=== PATIENT | female | born 1965 | race Caucasian/White ===

== ENCOUNTER → 2016-11-27 | Outpatient (CLI) | payer OTHER ==
--- NOTE | 2016-11-29 10:15 | MM ---
Reason for exam: screening (asymptomatic). Last mammogram was performed 2 years and 1 month ago. History: Reductions of both breasts, June 2004. Took hormonal contraceptives for 18 years. Physical Findings: A clinical breast exam by your physician is recommended on an annual basis and results should be correlated with mammographic findings. MG Screening Mammo w CAD Bilateral CC and MLO view(s) were taken. Prior study comparison: November 03, 2014, bilateral MG screening mammo w CAD. October 28, 2013, CAD bilateral diagnostic mammogram. October 16, 2012, CAD bilateral diagnostic mammogram. No significant changes when compared with prior studies. ASSESSMENT: Negative, BI-RAD 1 RECOMMENDATION: Routine screening mammogram of both breasts in 1 year.
== END | disposition home or self-care (01) ==
LOC: RADMAMWWP 13:52
PROVIDERS: ATTEND Obstetrics & Gynecology
DX: Z12.31 Encounter for screening mammogram for malignant neoplasm of breast (principal)

== ENCOUNTER → 2018-10-08 | Outpatient (CLI) | payer OTHER ==
--- NOTE | 2018-10-10 11:35 | MM ---
Reason for exam: screening (asymptomatic). Last mammogram was performed 1 year and 10 months ago. History: Reductions of both breasts, June 2004. Took hormonal contraceptives for 18 years. Physical Findings: A clinical breast exam by your physician is recommended on an annual basis and results should be correlated with mammographic findings. MG Screening Mammo w CAD Bilateral CC and MLO view(s) were taken. Prior study comparison: November 27, 2016, bilateral MG screening mammo w CAD. November 03, 2014, bilateral MG screening mammo w CAD. The breast tissue is heterogeneously dense. This may lower the sensitivity of mammography. No significant changes when compared with prior studies. ASSESSMENT: Benign, BI-RAD 2 RECOMMENDATION: Routine screening mammogram of both breasts in 1 year.
== END | disposition home or self-care (01) ==
LOC: RADMAMWWP 12:27
PROVIDERS: ATTEND Obstetrics & Gynecology
DX: Z12.31 Encounter for screening mammogram for malignant neoplasm of breast (principal)
CPT/HCPCS: 77067

== ENCOUNTER 2019-08-12 10:24 | Day surgery (SDC) | payer OTHER ==
[2019-08-12] MEDS ORDERED: LACTATED RINGERS 1,000 ML IV SCH (10:34)
[2019-08-12 10:51] VITALS: TEMP 97.6
[2019-08-12] MEDS ORDERED: PROPOFOL 10 MG/ML 20 ML VIAL IV ONE (10:52)
--- NOTE | 2019-08-12 11:42 | P.PCN ---
Date of Procedure: 08/12/19 Description of Procedure: BRIEF HISTORY: Patient is a 54-year-old female presents for outpatient colonoscopy for screening for malignant neoplasm of the colon. Denies any change in bowel habits, blood per rectum or abdominal pain. No prior colonoscopies reported. PROCEDURE PERFORMED: Colonoscopy. PREOPERATIVE DIAGNOSIS: Screening for malignant neoplasm of the colon, no prior colonoscopies reported. ESTIMATED BLOOD LOSS: Minimal. IV sedation per Anesthesia. PROCEDURE: After informed consent was obtained, the patient, was brought into the endoscopy unit. IV sedation was administered by Anesthesia under continuous monitoring. Digital rectal examination was normal. Initially the Olympus CF-190 flexible video colonoscope was then inserted in the rectum, gradually advanced into the cecum without any difficulty. Careful examination was performed as the scope was gradually being withdrawn. Ileocecal valve and the appendiceal orifice were visualized and appeared normal. Prep was poor with liquid stool throughout the colon with some solid components prohibiting complete lavage and suction and complete visualization of the mucosa. Mucosa of the cecum, ascending colon, transverse colon, descending colon, sigmoid colon, and rectum which was visualized appeared normal. Retroflexion was performed in the rectum and no lesions were seen. The patient tolerated the procedure well. IMPRESSION: Poor prep. Normal-appearing colon from rectum to cecum, however complete visualization of the mucosa was limited by poor prep. RECOMMENDATIONS: Findings of this examination were discussed with the patient and her sister. Okay to resume diet. Okay to resume medications. Would recommend repeat colonoscopy in six months to one year given poor prep preventing complete visualization of the mucosa.
[2019-08-12 12:05] VITALS: PULSE 64; RESP 18
[2019-08-12 12:08] VITALS: BP 118/78
== END 2019-08-12 12:28 ==
LOC: ORWHC2ENDO 10:24
PROVIDERS: ATTEND Internal Medicine
DX: Z12.11 Encounter for screening for malignant neoplasm of colon (principal); F32.9 Major depressive disorder, single episode, unspecified; Z79.899 Other long term (current) drug therapy; Z98.890 Other specified postprocedural states
CPT/HCPCS: 81025; J2704; G0121

== ENCOUNTER → 2020-09-06 | Outpatient (CLI) | payer OTHER ==
--- NOTE | 2020-09-07 11:29 | MM ---
Reason for exam: screening (asymptomatic). Last mammogram was performed 1 year and 11 months ago. History: Reductions of both breasts, June 2004. Took hormonal contraceptives for 18 years. Physical Findings: A clinical breast exam by your physician is recommended on an annual basis and results should be correlated with mammographic findings. MG Screening Mammo w CAD Bilateral CC and MLO view(s) were taken. Prior study comparison: October 08, 2018, bilateral MG screening mammo w CAD. November 27, 2016, bilateral MG screening mammo w CAD. There are scattered fibroglandular densities. There is chronic nodularity in the right breast. No significant changes when compared with prior studies. ASSESSMENT: Negative, BI-RAD 1 RECOMMENDATION: Routine screening mammogram of both breasts in 1 year.
== END ==
LOC: RADMAMWWP 11:18
PROVIDERS: ATTEND Obstetrics & Gynecology
DX: Z12.31 Encounter for screening mammogram for malignant neoplasm of breast (principal)
CPT/HCPCS: 77067

== ENCOUNTER → 2020-12-02 | Outpatient (CLI) | payer OTHER ==
--- NOTE | 2020-12-02 19:41 | MR ---
EXAMINATION TYPE: MR knee LT wo con DATE OF EXAM: 12/02/2020 COMPARISON: None. HISTORY: Left knee pain. TECHNIQUE: Multiplanar, multisequence imaging of the left knee is performed without IV contrast. FINDINGS: MEDIAL MENISCUS: Oblique increased signal posterior horn appears to extend to the inferior articular surface as image 23. LATERAL MENISCUS: Anterior and posterior horns are intact without tear. CRUCIATE LIGAMENTS: The anterior and posterior cruciate ligaments are intact and unremarkable. COLLATERAL LIGAMENTS: The medial collateral ligament and lateral collateral ligament complex are inta ct . Mild fluid signal surrounds medial collateral ligament. EXTENSOR MECHANISM: Visualized quadriceps and patellar tendons are intact. EFFUSION: Small suprapatellar joint effusion. POPLITEAL CYST: No popliteal/goins cyst. TRICOMPARTMENT SPACES: Mild to moderate tricompartment joint space loss and spurring. CARTILAGE: Some fissuring of articular cartilage medial tibial femoral compartment and patellofemoral compartment for reference sagittal image 16 BONE MARROW SIGNAL: No focal abnormal marrow signal is appreciated. OTHER multiseptated cystic lesion in the popliteal fossa measuring near 5 cm in length by near 5 cm t ransversely. IMPRESSION: 1. Multi septated 5 x 5 cm cystic lesion posterior distal femur popliteal level with local mass effec t presumed ganglion cyst. 2. Mild to moderate tricompartment degenerative changes as detailed above. 3. Small suprapatellar joint effusion. 4. At least intrasubstance suspected full-thickness tear posterior horn medial meniscus. 5. Mild MCL sprain injury.
== END | disposition home or self-care (01) ==
LOC: RADMRIMAIN 15:46
PROVIDERS: ATTEND Orthopaedic Surgery
DX: S83.412A Sprain of medial collateral ligament of left knee, initial encounter (principal); M67.462 Ganglion, left knee; M17.12 Unilateral primary osteoarthritis, left knee

== ENCOUNTER → 2023-08-10 | Outpatient (CLI) | payer OTHER ==
--- NOTE | 2023-08-13 07:28 | MM ---
Reason for Exam: Screening (asymptomatic). Last mammogram was performed 2 year(s) and 11 month(s) ago. Patient History: Menarche at age 17. First Full-Term at age 31. Postmenopausal. Patient used Hormonal Contraceptives for 18 years. 06/2004, Bilateral Reduction. Last menstrual period: Risk Values: Melisa 5 year model risk: 1.2%. NCI Lifetime model risk: 8.1%. Prior Study Comparison: 11/27/2016 Bilateral Screening Mammogram, [facility]. 10/08/2018 Bilateral Screening Mammogram, [facility]. 09/06/2020 Bilateral Screening Mammogram, [facility]. Tissue Density: The breast tissue is almost entirely fat. Findings: Analyzed By CAD. There is no suspicious group of microcalcifications or new suspicious mass. Overall Assessment: Negative, BI-RAD 1 Management: Screening Mammogram of both breasts in [address] [facility] will attempt to contact patient to return for supplemental views and ultrasound if indicated. Patient should continue monthly self-breast exams. A clinical breast exam by your physician is recommended on an annual basis. This exam should not preclude additional follow-up of suspicious palpable abnormalities. Note on Melisa scores and lifetime risk: 1. A Melisa score greater than 3% is considered moderate risk. If this is the case, consider specialist referral to assess eligibility for a risk reducing agent. 2. If overall lifetime risk for the development of breast cancer is 20% or higher, the patient may qualify for future screening with alternating mammogram and breast MRI. Electronically signed and approved by: Walker Hitchcock DO
== END | disposition home or self-care (01) ==
LOC: RADMAMWWP 12:27
PROVIDERS: ATTEND Pediatrics
DX: Z12.31 Encounter for screening mammogram for malignant neoplasm of breast (principal); Z78.0 Asymptomatic menopausal state
CPT/HCPCS: 77063; 77067

== ENCOUNTER → 2024-04-03 | Outpatient (CLI) | payer OTHER ==
--- NOTE | 2024-04-07 10:28 | MR ---
EXAMINATION TYPE: MR cervical spine wo con DATE OF EXAM: 04/03/2024 COMPARISON: None HISTORY: neck pain and right shoulder pain CONTRAST: Performed utilizing 0 mL intravenous Gadavist gadolinium contrast. TECHNIQUE: Multiplanar multiecho imaging on a 3.0 Juliet magnet is performed through the cervical spin e. FINDINGS: The craniovertebral junction is normal. Vertebral body alignment is normal. Mild increas ed signals within the spinal cord posterior to the C5-6 and C6-7 levels. C7-T1: No focal disc herniation or significant disc bulge is evident. No spinal canal stenosis or n eural foraminal stenosis is present. C6-7: Broad-based disc bulge is present with moderate anterior thecal sac compression. This may has s ome minimal right paracentral contact with the anterior spinal cord. No cord deformity is evident. No spinal canal stenosis is present. Mild foraminal narrowing is present bilaterally.. C5-6: There is a small left paracentral disc herniation with moderate anterior thecal sac compression . Cord contact and mild cord deformity is present. Moderate left and mild right foraminal narrowing is present. C4-5: No focal disc herniation or significant disc bulge is evident. No spinal canal stenosis or neetu ral foraminal stenosis is present. C3-4: No focal disc herniation or significant disc bulge is evident. No spinal canal stenosis or neetu ral foraminal stenosis is present. C2-3: No focal disc herniation or significant disc bulge is evident. No spinal canal stenosis or neetu ral foraminal stenosis is present. IMPRESSION: 1. Left paracentral moderate disc herniation C5-6 with cord contact and cord deformity. 2. Broad base disc bulge with subligamentous disc extension at C6-7 may have some mild cord contact w ithout cord deformity. 3. Some mild increased signal is in the C5-6 C6-7 cord levels. [facility], , 04/07/2024 10:26 AM
== END | disposition home or self-care (01) ==
LOC: RADMRIMAIN 16:16
PROVIDERS: ATTEND Orthopaedic Surgery
DX: M47.22 Other spondylosis with radiculopathy, cervical region (principal); M50.123 Cervical disc disorder at C6-C7 level with radiculopathy
CPT/HCPCS: 72141

== ENCOUNTER → 2024-05-12 | Outpatient (CLI) | payer OTHER ==
[2024-05-12 13:00] VITALS: BP 129/85; PULSE 71; RESP 16; TEMP 97.1
--- NOTE | 2024-05-12 14:41 | P.PAINPG ---
PQRS Measure Charge Sheet Comment: HISTORY OF PRESENT ILLNESS: A 59 yr old female w daughter at side as a referral from [facility] presents today w severe and chronic neck pain > 3 mo secondary to radiculopathy, spondylosis and facet arthropathy without myelopathy for evaluation. Pt states pain level is provoked at 6 /10 in intensity, constant, localized in the lower cervical spine, predominantly axial, achy in character w occasional shooting pain towards the shoulders and UEs. Pain is provoked by laying on R side. Pain is alleviated by massage therapy weekly since 2022 which she is currently in, red light therapy 3-4 times weekly since Mar 2024 which she is currently in, physician guided home exercises 5 times weekly since 2022, heat, medications (Ibu), topical, repositioning and rest . PMH: OA, MDD/ Anxiety PSH: Colonoscopy (2019, 2022), Breast Reduction Surgery SH: Never smoker, Rare ETOH use, No illicit drug use FH: Sis- Skin CA All: See list Meds: See list REVIEW OF ORGAN SYSTEMS: CONSTITUTIONAL: No fevers or chills. No recent weight loss. NEUROLOGICAL: + numbness and tingling along the distal extremities. No seizure disorders or headaches. MUSCULOSKELETAL: + pain PSYCHIATRIC: Denies current depression or suicidal though ts. Physical Examinations : Constitutional : Cooperative , not in acute distress . Neurologic : Cranial nerve II to XII intact. No focal neurological deficits. Psychiatric : alert & oriented x 3. Matching mood & appropriate affect. Judgment & insight intact. Musculoskeletal : Cervical Spine Motor strength in the deltoid and biceps: Normal right side. Normal Left side Motor strength biceps and the wrist extensors: Normal right side . Normal left side Motor strength in the triceps muscle: Normal right side. Normal left side Deep tendon reflexes: Normal at the biceps. Normal at Brachioradialis. Normal at triceps Vertebral body tenderness to deep palpation over C6 Cervical facet loading test: positive bilaterally Spurling test: positive bilaterally C6- C7 Neck distraction test: positive bilaterally Verenice sign: positive bilaterally Lumbar spine Motor strength lower extremities ,thigh and legs 5/5 Right side , 5/5 Left side Deep tendon reflexes : Normal Knee Jerk. Normal Ankle Jerk Vertebral body tenderness over Sam Test positive Lumbar facet Loading Test: positive Right / positive Left Range of motion of the lumbar spine Flexion 30 degrees, extension 10 degrees Straight Leg Raise test: Left/ Right positive at degrees Clay test: positive right / positive left. Severe tenderness over the Sacroiliac joint on the Right / Left sides Gaenslen test: positive bilaterally Seated flexion test: positive bilaterally. Sacral spine : Severe tenderness over the Sacroiliac joint: right side / left side Range of motion: Flexion of the lumbar spine <60 degrees Range of motion: Extension of the lumbar spine <20 degrees Gaenslen's Test positive Clay test: positive right side / left side Thigh Thrust Test Sacral Thrust Test Imaging: MRI non contrast cervical spine from 04/03/24 reviewed Assessment/ Plan : C5-C6, C6-C7 radiculopathy Recommendation of JOESPH C6-C7 #1. Risks, benefits of procedure discussed and patient verbalized understanding. Admits to anti- coagulant use or medical history of diabetes. Protocol for discontinuation/ continuation of medications halley procedure discussed. All questions answered. I have spent greater than 30 minutes on patient care today. Dr Reeves was available by phone for the evaluation of this patient. The time was used to review the medical records including relevant urine studies and Prescription history (MAPs), review of the available imaging, evaluation and examination of the patient, coordination of care with the medical staff and if applicable referring physicians, as well as creation of the medical record - Pain Location Bilateral Lower Back Non-Pharmacological Interventions: Chiropractic Treatment, Heat, Inactivity, Massage, Physical Therapy, Position/Reposition, Relaxation Technique Pharmacological Interventions: PRN Medication, Topical Medication PQRS Narrative: Smoking Status Never smoker Home Medications: Ambulatory Orders Sertraline [Zoloft] 50 mg PO QAM 08/08/19 Cetirizine HCl [Zyrtec] 10 mg PO HS 09/07/22 predniSONE 5 mg PO DAILY 09/07/22 Controlled Substance Measures - Controlled Substance Measures Is patient prescribed a controlled substance at discharge?: No
== END ==
LOC: PNWHC3 12:39
PROVIDERS: ATTEND Specialist
DX: M50.20 Other cervical disc displacement, unspecified cervical region (principal); M47.22 Other spondylosis with radiculopathy, cervical region
CPT/HCPCS: 99211

== ENCOUNTER 2024-06-03 07:05 | Day surgery (SDC) | payer OTHER ==
[~2024-06-03 07:05] MED LIST: LACTATED RINGERS 1,000 ML IV SCH
[2024-06-03 07:21] VITALS: TEMP 97.1
[2024-06-03] MEDS ORDERED: DEXAMETHASONE SOD PHOSPHATE 10 MG/ML 1 ML VIAL ONE (08:45)
[2024-06-03] MEDS ORDERED: IOPAMIDOL M200 10 ML VIAL ONE (08:45)
[2024-06-03] MEDS ORDERED: ROPIVACAINE 5MG/ML 20ML VIAL ONE (08:45)
[2024-06-03 09:07] VITALS: RESP 18
--- NOTE | 2024-06-03 09:11 | P.PCN ---
Description of Procedure: PROCEDURE 1. Injection of radio contrast material into cervical epidural space, cervical epidurogram, interpretation of cervical epidurogram, Cervical epidural steroid injection under fluoroscopic guidance, C6-7 (fluoroscopy images available in the radiology department ) 2. Cervical epidurogram. PREOPERATIVE DIAGNOSIS: 1- Cervical Degenerative Disc Diseases 2- Cervical radiculopathy., 3-cervical spondylosis with cervical Facet arthropathy without myelopathy.4-cervical spinal stenosis POSTOPERATIVE DIAGNOSIS: : 1- Cervical Degenerative Disc Diseases , 2- Cervical radiculopathy. 3-,cervical spondylosis with cervical Facet arthropathy without myelopathy. 4-cervical spinal stenosis ANESTHESIA: Local anesthetics infiltration. In the OR continuous pulse ox, EKG, blood pressure and verbal communication was maintained. EBL : None PROCEDURE INDICATION: The patient with neck pain and radiculitis unresponsive to conservative treatment consents for procedure. Discussed the procedure, alternatives and possible complications which may include increased pain, infection, bleeding, nerve damage, paralysis all of which could be permanent. Patient understands and all questions were answered. PROCEDURE DESCRIPTION : After getting consent patient was taken to the OR , positioned in prone position and time out was completed. A pillow was placed under the patients chest to increase the cervical interlaminar space. The cervical area was prepped and draped in the usual sterile fashion. Using anterior-posterior fluoroscopy, interlaminar space was identified and the skin over this site was marked and then infiltrated with 1% lidocaine subcutaneously. Subsequently, a 20-gauge 3-1/2-inch Tuohy epidural needle was inserted and advanced toward the epidural space with the loss of resistance technique using a syringe filled with preservative-free normal saline and guided by AP and lateral fluoroscopy. Negative CSF, negative blood, negative paresthesia. The correct needle position in the epidural space was verified with the injection of 2 mL of the water soluble contrast dye Isovue-200 and observing an excellent epidurogram with the epidural spread of the dye, after repeat negative aspiration 3 mL solution was injected which consists of 1 mL of preservative-free normal saline mixed with 2 mL of 20 mg dexamethasone and a washout of epidurogram was seen. Needle was withdrawn intact, skin was cleansed, and bandages were applied. Disposition: Patient tolerated the procedure well. No complication. Patient was placed in supine position and transferred to the recovery room area in stable condition and there was no evidence of upper or lower extremity motor or sensory deficit after the procedure patient was discharged from recovery room after discharge criteria met and home discharge instructions was given by the staff and patient will follow with the pain clinic in 2-4 weeks
[2024-06-03 09:21] VITALS: BP 113/76; PULSE 54
--- NOTE | 2024-06-03 09:29 | FL ---
EXAMINATION TYPE: FL guided pain mgmt statistic DATE OF EXAM: 06/03/2024 HISTORY: Fluoroscopy time Total dose area product (DAP) in uGy*m?, mGy*cm? (or similar): 0.84103 IMPRESSION: 1. Fluoroscopy time. [facility], , 06/03/2024 9:26 AM
== END 2024-06-03 09:35 | disposition home or self-care (01) ==
LOC: ORPAIN 07:05
PROVIDERS: ATTEND Pain Medicine Interventional Pain Medicine
DX: M50.10 Cervical disc disorder with radiculopathy, unspecified cervical region (principal); M47.22 Other spondylosis with radiculopathy, cervical region; M48.02 Spinal stenosis, cervical region
CPT/HCPCS: 62321; J1100; Q9966; J2795